=== PATIENT | female | born 1960 | race African-American/Black ===

== ENCOUNTER → 2018-09-21 | Day surgery (SDC) | payer MEDICARE ==
[2018-09-18 10:25] LABS: Eosinophils # (auto) 0.2 uL; Lymphocytes # (auto) 2.4 uL; Monocytes # (auto) 0.3 uL; Neutrophils # (auto) 1.9 uL
[2018-09-18 10:28] LABS: Basophils # (auto) 0.1 uL; Basophils % (auto) 1.4 % (0.0-2.0); Eosinophils % (auto) 3.5 % (0.0-7.0); Hematocrit 42.5 % (36.0-46.0); Lymphocytes % (auto) 49.6 % (10.0-50.0); Mean Corpuscular Hemoglobin 26.8 pg (28.0-32.0); Mean Corpuscular Hgb Conc. 33.1 g/dL (32.0-36.0); Mean Corpuscular Volume 81.1 fL (80.0-100.0); Monocytes % (auto) 5.5 % (0.0-12.0); Platelet Count (auto) 355 10^3/uL (140-450); Red Blood Cells 5.24 10^6/uL (4.0-5.20); Red Cell Distribution Width 14.9 % (11.8-14.3); White Blood Cell 4.7 10^3/uL (4.4-10.8)
[2018-09-18 10:30] LABS: Potassium 4.6 mmol/L (3.5-5.1)
[2018-09-18 10:31] LABS: Urine Bacteria FEW /hpf (None Seen); Urine Blood Negative /uL (Negative); Urine Specific Gravity 1.027 (1.001-1.035); Urine WBC 5 /hpf (0 - 5)
[2018-09-18 10:35] LABS: Albumin 3.7 g/dL (3.4-5.0); Calcium 8.7 mg/dL (8.5-10.1)
[2018-09-18 10:37] LABS: INR 0.93 (0.9-1.15); Partial Thromboplastin Time 25.3 sec (23.78-33.04)
[2018-09-18 10:40] LABS: BUN/Creatinine Ratio 11.1; Bilirubin, Total 0.3 mg/dL (0.2-1.0); Total Protein 7.9 g/dL (6.4-8.2)
[~2018-09-21] VITALS: Ht 167.6 cm; Wt 77.1 kg
[~2018-09-21] MED LIST: ACCU-CHEK COMFORT CURVE STRIP VI ONE; BENA40TA7 PO; BUPIVACAINE 0.25% INJ 50ML VIAL ONE; GLYCOPYRROLATE 0.2 MG/ML 1ML VIAL ONE; HYDROmorphone HCL 2 MG/ML VL IV PRN; HYDROmorphone HCL 2 MG/ML VL ONE; INSUINJ37 SC; KETOROLAC TROMETH 30 MG/ML 1ML VIAL IV ONE; LIDOCAINE HCL (LOCAL ANESTH.) 0.5 % 50ML MDV IJ ONE; LIDOCAINE HCL 2% TOP JELLY 5ML TOP ONE; LIDOCAINE W/ EPINEPHRINE 1% 20ML VIAL ONE; METF-370 PO; METOCLOPRAMIDE HCL 5MG/ml INJ 2ml VIAL IV ONE; MIDAZOLAM HCL 1MG/1ML-2 ML VIAL ONE; NEOSTIGMINE 1 MG/ML INJ (10mg/10ML VIAL) ONE; ONDANSETRON HCL 4 MG/2 ML VIAL ONE; PREG50CA PO; PROPOFOL 10 MG/ML 20 ML IV ONE; ROCURONIUM 10MG/ML 10ML VIAL IV ONE; SODIUM CHLORIDE LOCK 10 ML ONE; SUCCINYLCHOLINE CHLORIDE 20 MG/ML 10ML VIAL IV ONE; fentaNYL CITRATE 10 ML ONE; fentaNYL CITRATE 100 MCG/2 ML VL ONE
[2018-09-21 16:42] VITALS: BP 155/93
== END | disposition home or self-care (01) ==
LOC: SUR 11:44
PROVIDERS: ATTEND Obstetrics & Gynecology
DX: E27.0 Other adrenocortical overactivity (principal); N73.6 Female pelvic peritoneal adhesions (postinfective); K21.9 Gastro-esophageal reflux disease without esophagitis; D64.9 Anemia, unspecified; Z79.899 Other long term (current) drug therapy; Z98.890 Other specified postprocedural states
CPT/HCPCS: 36415; 58661; 80053; 81001; 82962; 85025; 85610; 85730; 86850; 86900; 86901; 87086; 87088; 87186; 88305; A6257; J0330; J1170; J2250; J2405; J2704; J3010; J3490; J7030